=== PATIENT | male | born 1995 | race Caucasian/White ===

== ENCOUNTER 2017-10-29 22:20 | Emergency (ER) | payer OTHER ==
[2017-10-29 22:24] VITALS: BMI 26.9
[2017-10-29 22:27] VITALS: BP 149/90; PULSE 86; RESP 18; TEMP 98.2; O2SAT 100
[2017-10-29] MEDS ORDERED: cefTRIAXone (Rocephin) 250 mg Inj IM ONE (22:42)
--- NOTE | 2017-10-29 22:45 | ED PDOC ---
HPI: Male Pain Time Seen by Provider: 10/29/17 22:28 Chief Complaint (Nursing): Male Genitourinary Chief Complaint (Provider): dysuria History Per: Patient History/Exam Limitations: no limitations Onset/Duration Of Symptoms: Days (5) Current Symptoms Are (Timing): Still Present Quality Of Discomfort: Burning Additional Complaint(s): 22 y/o male presents for evaluation of dysuria x 5 days. Associated yellow penile discharge x 1 day. Patient concerned because he recently has a new sex partner of which he has not been using protection with. Denies fever, nausea/ vomiting, back pain, abdominal pain, hematuria, testicular pain/swelling Past Medical History Reviewed: Historical Data, Nursing Documentation, Vital Signs Vital Signs: Last Vital Signs Temp 98.2 F 10/29/17 22:24 Pulse 86 10/29/17 22:24 Resp 18 10/29/17 22:24 BP 149/90 10/29/17 22:24 Pulse Ox 100 10/29/17 22:24 - Medical History PMH: No Chronic Diseases - Surgical History Surgical History: No Surg Hx - Family History Family History: States: No Known Family Hx - Living Arrangements Living Arrangements: With Family - Allergies Allergies/Adverse Reactions: Allergies Allergy/AdvReac Type Severity Reaction Status Date / Time No Known Allergies Allergy Verified 10/29/17 22:24 Review of Systems ROS Statement: Except As Marked, All Systems Reviewed And Found Negative Genitourinary Male: Positive for: Dysuria, Penile Discharge Physical Exam - Reviewed Nursing Documentation Reviewed: Yes Vital Signs Reviewed: Yes - Physical Exam Appears: Positive for: Well, Non-toxic, No Acute Distress Head Exam: Positive for: ATRAUMATIC, NORMAL INSPECTION, NORMOCEPHALIC Skin: Positive for: Normal Color Eye Exam: Positive for: Normal appearance Cardiovascular/Chest: Positive for: Regular Rate, Rhythm Respiratory: Positive for: Normal Breath Sounds Gastrointestinal/Abdominal: Positive for: Normal Exam, Bowel Sounds, Soft. 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 Negative for: scrotum tenderness (R), scrotum tenderness (L), testicular tenderness (R), testicular tenderness (L), urethral discharge Extremity: Positive for: Normal ROM Neurologic/Psych: Positive for: Alert, Oriented - ECG O2 Sat by Pulse Oximetry: 100 - Progress ED Course And Treament: urine, gc/chlamydia Patient educated on findings, agreeable to STD prophylaxis before tests resulted Rocephin IM, Zithromax PO ordered Patient educated on safe sex, follow up PMD 2-3 days. Return precautions given Disposition - Clinical Impression Clinical Impression: Urethritis - Patient ED Disposition Is Patient to be Admitted: No - Disposition Referrals: [facility] [Outside] Disposition: Routine/Home Disposition Time: 23:12 Condition: STABLE Instructions: Urethritis
[2017-10-29] MEDS ORDERED: cefTRIAXone (Rocephin) 250 mg Inj ONE (22:51)
[2017-10-29] MEDS ORDERED: Lidocaine 1% MPF (30 ml) Inj ONE (22:57)
[2017-10-29 23:23] LABS: URINE BACTERIA RARE (<OCC); URINE BILIRUBIN NEGATIVE (NEGATIVE); URINE BLOOD NEGATIVE (NEGATIVE); URINE CLARITY SLIGHTY-CLOUDY (Clear); URINE COLOR YELLOW (YELLOW); URINE GLUCOSE (UA) NEG (Normal); URINE LEUKOCYTE ESTERASE NEG Leu/uL (Negative); URINE PROTEIN NEGATIVE (NEGATIVE); URINE UROBILINOGEN 0.2-1.0 mg/dL (0.2-1.0)
== END 2017-10-29 23:37 | disposition home or self-care (01) ==
LOC: H.ER 22:20
DX: N34.2 Other urethritis (principal)
CPT/HCPCS: 81003; 87086; 87491; 87591; 96372; 99282; J0696